=== PATIENT | male | born 1985 | race Caucasian/White ===

== ENCOUNTER 2017-07-20 05:12 | Emergency (ER) | payer SELFPAY ==
[~2017-07-20] VITALS: Ht 188 cm; Wt 74.8 kg
[2017-07-20] MEDS ORDERED: TETRACAINE 0.5% OPHTH SOLN 4 ML BTL (SINGLE DOSE ONLY) OU ONE (06:30)
[2017-07-20] MEDS ORDERED: FLUORESCEIN (FLUOR-I-STRIPS) 1 MG STRP OU ONE (06:30)
[2017-07-20] MEDS ORDERED: IBUPROFEN 800 MG (MOTRIN) TAB PO STA (06:44)
[2017-07-20] MEDS ORDERED: RX-TOBRA/DEXAMETH (TOBRADEX) OP. SUSP 2.5 ML BTL ONE (06:46)
[2017-07-20] MEDS ORDERED: RX-TOBRA/DEXAMETH (TOBRADEX) OP. SUSP 2.5 ML BTL OU STA (06:50)
--- NOTE | 2017-07-20 06:52 | ED EENT ---
History of Present Illness General Chief Complaint: Eye Problems Stated Complaint: PT STS SOMETHING IN EYES Nursing Triage Note: c/o L eye pain Source: patient Exam Limitations: no limitations History of Present Illness Date Seen by Provider: Jul 20, 2017 Time Seen by Provider: 06:30 Initial Comments Here with report of left eye pain. Feels like there is something in the top left corner. States that he was doing okay and last night felt something and its desire with his arm. After that he had pain that persisted all night. Denies vision problems. Denies other injury. Didn't give a small shannen out of the corner but was wondering if he had something else in the eye or if there is a hair in the eye. Timing/Duration: abrupt, other (late last night) Severity: moderate Location: eye (L) Prearrival Treatment: no prearrival treatment Associated Symptoms: No facial pain/swelling, No fever Allergies and Home Medications Allergies Coded Allergies: No Known Drug Allergies (Unverified , 07/20/17) Home Medications No Active Prescriptions or Reported Meds Patient Home Medication List Home Medication List Reviewed: Yes Review of Systems Constitutional: see HPI; No chills, No fever Eyes: See HPI, Foreign Body Sensation, Inflammation, Pain Ears: No Symptoms Reported Nose: no symptoms reported Respiratory: no symptoms reported Cardiovascular: no symptoms reported Skin: no symptoms reported Past Gwprwlp-Ywfiei-Lxwuda Hx Past Med/Social Hx: Reviewed Nursing Past Med/Soc Hx Patient Social History Alcohol Use: Occasionally Uses Recreational Drug Use: No Smoking Status: Current Everyday Smoker Type Used: Cigars Recent Foreign Travel: No Contact w/Someone Who Travel: No Recent Infectious Disease Expo: No Recent Hopitalizations: No Physical Abuse: No Sexual Abuse: No Immunizations Up To Date Tetanus Booster (TDap): More than 5yrs Past Medical History Surgeries: Yes Orthopedic Respiratory: No Cardiac: No Neurological: No Genitourinary: No Gastrointestinal: No Musculoskeletal: No Endocrine: No HEENT: No Cancer: No Psychosocial: No Nursing Suicide Risk Score: 0 Integumentary: No Blood Disorders: No Family Medical History Reviewed Nursing Family Hx Physical Exam Vital Signs Vital Signs - First Documented 07/20/17 05:34 Temp 98.2 Pulse 63 Resp 18 B/P (MAP) 118/86 (97) Pulse Ox 99 General Appearance: WD/WN, mild distress (.) Eyes: right eye normal inspection; left eye conjunctival inflammation, left eye lid inflammation (upper), left eye foreign body (3 small flakes of debris removed from upper lid in the outer/lateral aspect. This was done under visualization of stain after tetracaine drops applied.), left eye other (no obvious abrasions noted after stain.); bilateral eye PERRL, bilateral eye EOMI Cardiovascular: regular rate, rhythm, no murmur Respiratory: lungs clear, normal breath sounds Neurologic/Psychiatric: alert, oriented x 3 Progress/Results/Core Measures Results/Orders My Orders Orders - SARAHI FOWLER MD Tetracaine 0.5% Ophth Agatha Sdv (Tetracai (07/20/17 06:30) Fluorescein Strips ([id number]) (07/20/17 06:30) Ibuprofen Tablet (Motrin Tablet) (07/20/17 06:44) Medications Given in ED Current Medications Medications Dose Ordered Sig/Andrzej Route Start Time Stop Time Status Last Admin Dose Admin Fluorescein Sodium 1 mg ONCE ONCE OU 07/20/17 06:30 07/20/17 06:31 DC 07/20/17 06:42 1 MG Tetracaine HCl 4 ml ONCE ONCE OU 07/20/17 06:30 07/20/17 06:31 DC 07/20/17 06:42 4 ML Vital Signs/I&O 07/20/17 05:34 Temp 98.2 Pulse 63 Resp 18 B/P (MAP) 118/86 (97) Pulse Ox 99 Blood Pressure Mean: 97 Progress Progress Note : Progress Note Seen and evaluated. Tetracaine drops and stain applied. No obvious abrasions. Foreign body noted and removed 3 to the upper lid. Feeling better afterwards. Due to moderate inflammation of the upper lid and the length of time, we will use TobraDex for a few days. This was initiated. Ibuprofen 800 mg by mouth given. Discharged home with return precautions. Patient verbalize understanding instructions and agreement with plan. Departure Impression Primary Impression: Foreign body in conjunctival sac Qualified Codes: T15.12XA - Foreign body in conjunctival sac, left eye, initial encounter Disposition: 01 HOME, SELF-CARE Condition: Improved Departure-Patient Inst. Decision time for Depature: 06:52 Referrals: YOLIE SIMS OD NO,LOCAL PHYSICIAN (PCP) Primary Care Physician Patient Instructions: How to Use Eye Drops Add. Discharge Instructions: All discharge instructions reviewed with patient and/or family. Voiced understanding. You had foreign body to the upper eyelid that was removed. You may take ibuprofen 800 mg every 8 hours as needed for pain. Use eye drops 2 drops to the left eye every 4 hours for the next 3-5 days as needed. Return for worse pain, vision problems, swelling or other concerns as needed. You should follow- up with an eye doctor for recheck within a few days. Scripts No Active Prescriptions or Reported Meds SARAHI FOWLER MD Jul 20, 2017 06:52
[2017-07-20 06:54] VITALS: BP 118/86
== END 2017-07-20 06:58 | disposition home or self-care (01) ==
LOC: ER 05:17
DX: T15.12XA Foreign body in conjunctival sac, left eye, initial encounter (principal); F17.290 Nicotine dependence, other tobacco product, uncomplicated
CPT/HCPCS: 99283